=== PATIENT | female | born 1965 | race American Indian/Alaskan Native ===

== ENCOUNTER → 2017-02-04 | Outpatient (CLI) | payer OTHER | LOC: FIMAGING 12:17 | PROVIDERS: ATTEND Obstetrics & Gynecology Gynecology | DX: Z12.31 Encounter for screening mammogram for malignant neoplasm of breast (principal); Z80.3 Family history of malignant neoplasm of breast | CPT/HCPCS: G0202 ==

== ENCOUNTER → 2017-07-08 | Outpatient (CLI) | payer OTHER | LOC: FIMAGING 12:31 | PROVIDERS: ATTEND Obstetrics & Gynecology Gynecology | DX: M81.0 Age-related osteoporosis without current pathological fracture (principal); Z78.0 Asymptomatic menopausal state; Z79.890 Hormone replacement therapy ==

== ENCOUNTER → 2018-04-01 | Outpatient (CLI) | payer OTHER | LOC: FIMAGING 13:30 | PROVIDERS: ATTEND Obstetrics & Gynecology Gynecology | DX: Z12.31 Encounter for screening mammogram for malignant neoplasm of breast (principal); Z80.3 Family history of malignant neoplasm of breast ==

== ENCOUNTER → 2018-06-25 | Outpatient (CLI) | payer OTHER | LOC: BMCIMAGING 16:42 | PROVIDERS: ATTEND Family Medicine | DX: M25.531 Pain in right wrist (principal); W19.XXXA Unspecified fall, initial encounter; R93.6 Abnormal findings on diagnostic imaging of limbs ==

== ENCOUNTER 2018-06-26 17:06 | Emergency (ER) | payer OTHER ==
--- NOTE | 2018-06-26 17:19 | EDPHY ---
General Time Seen by Provider: 06/26/18 17:18 Narrative: CLINICAL IMPRESSION: Right Distal Radius Fracture ASSESSMENT/PLAN: Patient is a 52-year-old female with no significant medical history who presents with complaint of escalating and uncontrolled pain after being diagnosed with distal right radius fracture yesterday. Patient is very uncomfortable appearing however not toxic-appearing. A repeat x-ray was obtained which revealed a transverse nondisplaced distal radial fracture. Her compartment was soft on my examination, no evidence of compartment syndrome. The patient was responded in a volar splint, CMS remained intact status post splint placement. There was no evidence of dislocation, compartment syndrome, DVT, cellulitis, septic arthritis or neurovascular compromise. Her history and physical examination is most consistent with acute right distal radius fracture. The patient was given fentanyl and Percocet in the emergency department with a significant improvement of her pain. On repeat examination and prior to discharge the patient reports she is feeling so much better, feels that her pain is now adequately controlled. She is well established with Dr. Arriola from a remote right injury, she will call 1st thing Friday morning to schedule follow-up. Return precautions discussed-patient to return to the emergency Department for significantly worsening or uncontrolled pain, significant swelling, numbness or tingling of the extremity, paleness or coolness of her digits, fever or for any other concerning symptom. The patient verbalizes understanding and she is in agreement with this plan. DIFFERENTIAL DX: Differential diagnosis including but not limited to compartment syndrome, new injury, septic joint, cellulitis, fracture, dislocation ED PROCEDURES: Procedure: Splint placement. A Zoe splint was applied. After application of the splint I returned and re -examined the patient. The splint was adequately immobilizing the joint and distal to the splint the patient's circulation and sensation was intact. ED COURSE: 1735: Case discussed with Dr. Alejandro 1738: Dr. Alejandro discussing case with Dr. Hanks 1828: On repeat examination the patient is much more comfortable appearing. Splint removed by myself, compartment is soft. She remains neuro vascularly intact distally. CHIEF COMPLAINT: Right wrist pain, diagnosed with distal radius fracture yesterday HPI: Patient is a 52-year-old female with no significant medical history who presents to the emergency department after sustaining a fall yesterday, diagnosed with distal radial fracture presenting with extreme pain. Patient reports she was working out in her long, fell backwards onto outstretched hand, was seen at [facility] and diagnosed with a distal right radius fracture and possible ligamentous injury. Patient reports she was given Advil for pain relief, she had a [place] at home which she took this morning with mild relief of her pain. Patient was having significant escalating pain today, went to Dr. Arriola's office as she is already a patient of his. They took the splint off, "manipulated the arm" when she started experiencing even more significant pain. Patient proceeded here for further evaluation and treatment. She denies any numbness or tingling of her digits, she denies any coolness or pallor of her digits. She has had a "heavy feeling in her middle finger" since the injury. She denies any other injury or complaint. PAST MEDICAL HISTORY: Denies Pertinent Past Surgical History: Right pisiform removal. Family History: Noncontributory Social History: Denies smoking or illicit drug use ROS: A full 10 point review of systems was negative except for those mentioned in HPI. PHYSICAL EXAM: General Appearance: Alert, very uncomfortable appearing however not toxic- appearing. HENT: Normocephalic, atraumatic. External ears are normal. Nares are clear, mucosa is pink. Oropharynx is clear , dentition is normal. Eyes: PERRLA, EOMI intact. Conjunctiva pink, no pallor or injection. Neck: Supple, nontender, no lymphadenopathy, no midline pain, FROM, no meningismus. Respiratory: There are no retractions, lungs are clear to auscultation. Cardiac: Regular rate and rhythm, no murmurs or gallops. Gastrointestinal: Abdomen is soft, nontender, bowel sounds normal, no masses/ hernia, no rigidity, guarding or focal peritoneal findings. Skin: Warm, dry, no rashes, no nodules on palpation. Upper Extremities: Left upper extremity unremarkable. Intact distal pulses, Full range of motion intact, no tenderness, no ecchymosis or edema. Right shoulder nontender with full range of motion, right elbow nontender with full range of motion. Patient is able to supinate and pronate without difficulty. The radial, ulnar and median nerves were all tested. Radial nerve: Patient is able to extend wrist and fingers of the local joints. Ulnar nerve: Patient is able to abduct all fingers. Median nerve patient is able to oppose thumb to pinky. After splint removal, the forearm is noted to be mildly edematous, ecchymosis noted on the volar aspect. The compartment is soft. Two point discrimination is intact at each digit distally. Lower Extremities: Intact distal pulses, No edema, No tenderness, No cyanosis, full range of motion intact, No calf tenderness bilaterally. MEDICAL DECISION MAKING: Patient was seen independently. Secondary supervising physician at time of evaluation was Dr. Alejandro. Diagnosis: Right distal radius fracture. New, requires workup Summary: See Assessment and Plan for summary of ED visit Clinical lab tests: Not applicable. Independent visualization of images, tracing, or specimens: Yes. Decision to obtain medical records or history from someone other than the patient: No Review / Summarize previous medical records: Yes Discussed patient with another provider: Yes, Dr. Alejandro Patient Progress: Stable, discharged. - Diagnostics Imaging Results: Imaging Impressions Wrist X-Ray 06/26/18 17:26 Impression: Casting of transverse nondisplaced mildly comminuted distal right radial fracture. Scapholunate interspace widening. - Objective Vital Signs: Initial Vital Signs Temperature (C) 36.9 C 06/26/18 17:15 Heart Rate 55 L 06/26/18 17:15 Respiratory Rate 16 06/26/18 17:15 Blood Pressure 167/75 H 06/26/18 17:15 O2 Sat (%) 98 06/26/18 17:15 O2 Delivery Mode Room Air Allergies/Adverse Reactions: No Known Drug Allergies Allergy (Verified 06/26/18 17:20) Home Medications: Medication Instructions Recorded oxyCODONE/APAP 5/325 [Percocet 1 - 2 tab PO Q4H PRN #20 tab 06/26/18 5/325 (*)] Medications Given: Discontinued Medications Fentanyl (Sublimaze) 100 mcg IVP EDNOW ONE Stop: 06/26/18 17:42 Last Admin: 06/26/18 17:43 Dose: 100 mcg Ondansetron HCl (Zofran) 4 mg IVP EDNOW ONE Stop: 06/26/18 18:22 Last Admin: 06/26/18 18:24 Dose: 4 mg Oxycodone/Acetaminophen (Percocet 5/325) 2 tab PO EDNOW ONE Stop: 06/26/18 18:15 Last Admin: 06/26/18 18:19 Dose: 2 tab Departure - Departure Disposition: Home, Routine, Self-Care Clinical Impression: Distal radius fracture, right Qualifiers: Encounter type: initial encounter Fracture type: closed Fracture morphology: unspecified fracture morphology Qualified Code(s): S52.501A - Unspecified fracture of the lower end of right radius, initial encounter for closed fracture Condition: Good Instructions: Wrist Fracture in Adults (ED) Additional Instructions: DISCHARGE INSTRUCTIONS FROM YOUR DOCTOR Thank you for visiting our emergency department today. Please keep in mind that discharge from the emergency department does not mean that there is nothing wrong - it simply means that we have not identified an emergency condition that requires further evaluation or treatment in the hospital. You should always plan to follow up with primary care for re-evaluation of your condition in the next 2-3 days. Rest, ice (on and off), elevate the wrist and hand as possible above the level of the heart to decrease pain and swelling. Wear the splint as applied. Do not remove splint and do not get it wet. For pain, Ibuprofen 400 mg every 6 hours. Do not exceed 2400 mg of ibuprofen in 24 hours. Take percocet as prescribed if needed for pain. Do not take this medication with tylenol or other tylenol-containing medications. Do not take this medication while you are drinking alcohol, driving, working, supervising persons or operating machinery. This medication can make you sleepy. You may need to take a stool softener, such as Colace, which is available over-the- counter, while you take this narcotic pain medicine, as it may make you constipated. Continue your regular medications as prescribed. Return for increased pain or swelling, numbness, tingling or weakness of the fingers, discoloration of the fingers, fever,inability to move your fingers or any other new, worsening or worrisome symptoms. People present with illnesses and injuries in different ways, and it is always possible that we have missed something. You may always return for re-evaluation if symptoms worsen or if they are not improving or if you develop new/different symptoms. Again, thank you for choosing our emergency department. We hope that you feel better. Referrals: Trip Covarrubias MD [Primary Care Provider] - As per Instructions Conner Arriola MD [Medical Doctor] - 2-3 days, call for appt. Prescriptions: oxyCODONE/APAP 5/325 [Percocet 5/325 (*)] 1 - 2 tab PO Q4H PRN #20 tab PRN Reason: Pain, Severe
[2018-06-26] MEDS ORDERED: fentaNYL 100 MCG/2 ML INJ ONE (17:37)
[2018-06-26] MEDS ORDERED: fentaNYL 100 MCG/2 ML INJ IVP ONE (17:41)
[2018-06-26] MEDS ORDERED: OXYCODONE/APAP 5/325 TAB PO ONE (18:14)
[2018-06-26] MEDS ORDERED: ONDANSETRON 4 MG/2 ML VIAL IVP ONE (18:21)
[2018-06-26 18:59] VITALS: BP 154/83
== END 2018-06-26 18:57 | disposition home or self-care (01) ==
PROC: 2W3CX1Z Immobilization of Right Lower Arm using Splint (ICD-10-PCS; principal; 2018-06-26)
DX: S52.501A Unspecified fracture of the lower end of right radius, initial encounter for closed fracture (principal); W19.XXXA Unspecified fall, initial encounter; Y93.B9 Activity, other involving muscle strengthening exercises
CPT/HCPCS: 96374; J2405; J3010

== ENCOUNTER 2018-06-27 02:48 | Observation (INO) | payer OTHER ==
[2018-06-27] MEDS ORDERED: fentaNYL 100 MCG/2 ML INJ ONE ×2 (03:07→14:41)
[2018-06-27] MEDS ORDERED: fentaNYL 100 MCG/2 ML INJ IVP ONE (03:10)
--- NOTE | 2018-06-27 03:11 | EDPHY ---
H & P Stated Complaint: WAS SEEN EARLIER TODAY FOR FX WRIST PAIN MEDS NOT WORKING Time Seen by Provider: 06/27/18 02:53 HPI/ROS: HPI The patient presents with right wrist pain. The patient was diagnosed with a nondisplaced right distal radius fracture 2 days ago after a fall. She was seen at urgent care and she was given a splint. She had ongoing pain which was very severe so she went to [facility]. They changed her splint but she had severe pain so she came to the emergency department. Here she received fentanyl with some pain relief. She felt much better and was discharged home. She has been taking oxycodone around the clock, however pain has been severe so she comes back to the emergency department.. REVIEW OF SYSTEMS 10 systems were reviewed and negative with the exception of the elements mentioned in the history of present illness. PMHx: Prior [place] pisoform [place] [address] Arri[place], no other injuries, history of osteoporosis Soc Hx: Here with her PHYSICAL General Appearance: Alert, uncomfortable appearing Eyes: Pupils equal and round no pallor or injection ENT, Mouth: Mucous membranes moist Respiratory: Breathing comfortably Neurological: A&O, moves all extremities Skin: Warm and dry, no rashes Musculoskeletal: Right wrist is slightly edematous with ecchymoses on the radial aspect. There is tenderness of the radial aspect of her wrist with limited range of motion secondary to pain, there is brisk capillary refill in all digits, hand is warm, there is decreased sensation to the middle finger to light touch Extremities: symmetrical, full range of motion Psychiatric: Patient is oriented X 3, there is no agitation Source: Patient Exam Limitations: No limitations - Personal History LMP (Females 10-55): Post Menopausal Current Tetanus/Diphtheria Vaccine: Yes Current Tetanus Diphtheria and Acellular Pertussis (TDAP): Yes - Medical/Surgical History Hx Asthma: No Hx Chronic Respiratory Disease: No Hx Diabetes: No Hx Cardiac Disease: No Hx Renal Disease: No Hx Cirrhosis: No Hx Alcoholism: No Hx HIV/AIDS: No Hx Splenectomy or Spleen Trauma: No Other PMH: FX WRIST - Social History Smoking Status: Never smoked Constitutional: Initial Vital Signs Temperature (C) 36.6 C 06/27/18 02:49 Heart Rate 64 06/27/18 02:49 Respiratory Rate 18 06/27/18 02:49 Blood Pressure 145/79 H 06/27/18 02:49 O2 Sat (%) 97 06/27/18 02:49 O2 Delivery Mode Nasal Cannula O2 (L/minute) 2 Allergies/Adverse Reactions: No Known Drug Allergies Allergy (Verified 06/26/18 17:20) Home Medications: Medication Instructions Recorded oxyCODONE/APAP 5/325 [Percocet 1 - 2 tab PO Q4H PRN #20 tab 06/26/18 5/325 (*)] Medical Decision Making Differential Diagnosis: 52-year-old female with nondisplaced distal radius fracture sustained 2 days ago repeat presents to the emergency department for ongoing right wrist pain. She is currently splinted, has been taking oxycodone, using ice and elevation with ongoing severe pain. On exam, she does have some edema and ecchymoses, she has decreased sensation of her middle finger, otherwise she has sensation intact with decent range of motion. Her hand is warm. I do not see any sign of compartment syndrome. I do not appreciate any concern for vascular injury. Here, she was given fentanyl 100 mcg with minimal improvement in her symptoms. Given the severity of her pain despite multiple treatments, I feel she should be admitted to the hospital for pain control and possibly further diagnostic testing. Patient's primary orthopedist is Dr. Arriola. I attempted to reach him, however reached his colleague Dr. Kumar who [place] I consulted with Dr. Hanks the on-call orthopedist who recommended hand specialist given the scaphoidolunate widening. I consulted with Dr. oDminguez, the on-call hand specialist who will see the patient in consultation later today. We will keep the patient NPO and obtain MRI of her wrist and hand for further evaluation for ligamentous injury or acute carpal tunnel syndrome. I consulted with the hospitalist Dr. Shafer who will admit the patient for pain control. I updated the patient and her at the bedside. - Data Points Medications Given: Hydromorphone HCl (Dilaudid) 0.5 - 1 mg IVP Q3HRS PRN PRN Reason: Pain, Severe Unable to Take PO Stop: 07/07/18 04:36 Last Admin: 06/27/18 05:31 Dose: 1 mg Sodium Chloride (Ns) 1,000 mls @ 75 mls/hr IV CONT LASHAWN Stop: 06/27/18 18:04 Last Admin: 06/27/18 05:16 Dose: 1,000 mls Discontinued Medications Fentanyl (Sublimaze) 100 mcg IVP EDNOW ONE Stop: 06/27/18 03:11 Last Admin: 06/27/18 03:11 Dose: 100 mcg Ketamine HCl (Ketamine) 15 mg IVP EDNOW ONE Stop: 06/27/18 03:34 Last Admin: 06/27/18 04:43 Dose: Not Given Departure - Departure Disposition: [facility] Acute Condition: Fair
[2018-06-27] MEDS ORDERED: KETAMINE 200 MG/20 ML VIAL IVP ONE (03:33)
[2018-06-27] MEDS ORDERED: ONDANSETRON 4 MG/2 ML VIAL IVP PRN ×2 (04:37→15:57)
[2018-06-27] MEDS ORDERED: ACETAMINOPHEN 325 MG TAB PO PRN (04:37)
[2018-06-27] MEDS ORDERED: LORazepam 2 MG/ML INJ IVP PRN (04:37)
[2018-06-27] MEDS ORDERED: ONDANSETRON DISINTEGRATING 4 MG TAB PO PRN (04:37)
[2018-06-27] MEDS ORDERED: NS 1,000 ML IV SCH (04:45)
[2018-06-27] MEDS: HYDROmorphONE/DILAUDID 1 MG/ML INJ IVP PRN ×2 (05:31→09:46)
--- NOTE | 2018-06-27 06:15 | GHP ---
[f rep st] HISTORY AND PHYSICAL DATE OF ADMISSION: 06/27/2018 SOURCE: Patient provides history, appears reliable. EMR was reviewed and case discussed with ED pro vider. CHIEF COMPLAINT: Right wrist pain. HISTORY OF PRESENT ILLNESS: This is a very pleasant 52-year-old female with past medical history sig nificant for osteoporosis, impaired menopausal flushing on hormone replacement, who presents to the [facility] department today for the second time within 24 hours with complaints of worsening right wris t pain. Two days ago patient had a mechanical fall at home while gardening. She reports she was pul ling some weeds and leaning backwards. She believes she may have tripped over a stump and landed on her right wrist with her hand outstretched behind her. The patient denies any other injuries. She d id go to Urgent Care and was noted to have a distal radial fracture. She was placed into a splint an d referred to Orthopedic Surgery on an outpatient basis. She saw Dr. Arriola. She was complaining of pain and her splint was replaced. The patient subsequently continued to have a lot of pain. She kp t to the ER yesterday. She received a dose of fentanyl with improved pain control. She reports that she just has persistent numbness in the 3rd digit, but otherwise no numbness, tingling in the other digits. She does report worsening pain since that time. Presented again early this morning with com plaints of excruciating pain. The patient denies any fevers, chills. She does have some persistent swelling and bruising. She has not had any increased paresthesias. She received a dose of fentanyl in the emergency department with improvement in her pain. REVIEW OF SYSTEMS: 10 systems reviewed, negative except as noted above. ALLERGIES: No known drug allergies. HOME MEDICATIONS: Percocet 5/325, 1-2 tabs p.o. q.4 hours p.r.n. for pain. PAST MEDICAL HISTORY: Osteoporosis, menopausal flushing on hormone replacement therapy. PAST SURGICAL HISTORY: Patient denies. FAMILY HISTORY: Denies. SOCIAL HISTORY: Patient is , lives with her . She does not smoke, drink, or utilize a [place] illicit drugs. CODE STATUS: Full. PHYSICAL EXAMINATION: VITAL SIGNS: Upon arrival to the emergency department, blood pressure is 145/ 79, heart rate 64, respiratory rate 18, O2 saturation 97% on room air, temperature 36.6. Current vit als available, blood pressure 144/83, heart rate is 58, respiratory rate 18, O2 saturation is 95% on room air, temperature 36.4. GENERAL: No acute distress. Mara adult female is resting comfortab ly in the bed. She does appear slightly uncomfortable and fatigued. at bedside. HEAD: Nor mocephalic, atraumatic. EYES: Extraocular muscles grossly intact. Pupils equal, round, slightly de creased reactivity bilaterally, but symmetric. No scleral icterus or conjunctival injection. ENT: Mucous membranes appear moist. No oropharyngeal erythema or exudates. No nasal discharge. NECK: S upple. Trachea midline. CV: Regular rate and rhythm with occasional extra beat in the left sternal border. No murmurs, rubs, or gallops appreciated. RESPIRATORY: Unlabored breathing. Lungs are cl ear to auscultation bilaterally. No wheezes, rales, or rhonchi. ABDOMEN: Positive bowel sounds. S oft, nontender to palpation. No rebound, guarding, or masses appreciated. : No suprapubic tender ness to palpation. No Diaz catheter in place. MUSCULOSKELETAL: Patient moves all extremities with exception of the right upper extremity which is in a splint. She is able to move the distal digits. EXTREMITIES: No cyanosis, clubbing, edema. Patient with 2+ pedal pulses bilaterally and symmetric . NEURO: Grossly nonfocal. No facial drooping. Moves all extremities. PSYCH: Thought process, c ontent and questions are appropriate. Patient is pleasant and cooperative. LABORATORY STUDIES: None. IMAGING: Wrist x-ray from 06/26/2018, reviewed showing cast of transverse nondisplaced mildly commin uted distal right radial fracture, scapholunate interspace widening. ASSESSMENT AND PLAN: Mara 52-year-old female with history of osteoporosis, menopausal flushing o n hormone replacement therapy, who presents to the emergency department following mechanical fall and complaints of increasing pain with her splint. 1. Intractable right wrist pain: Differential including fracture or ligamentous injury. No evidenc e of compartment syndrome. Dr. Yao spoke with on-call hand surgeon, Dr. Dominguez. He requested an MR I this morning and to make the patient n.p.o. He will evaluate the patient once that is available. We will continue with pain management p.r.n. as patient will be n.p.o. Hydromorphone and lorazepam w ill be made available. 2. Right wrist fracture: In splint already. Additional imaging as noted above in plan. 3. Osteoporosis: Patient is on hormone replacement therapy for treatment and care. 4. Fluids, electrolytes, and nutrition: IV fluids overnight while patient will be n.p.o. Electroly te monitoring and replacement if needed. 5. Code status: Full. 6. Disposition: Patient admitted to observation status on the med-surg floor pending additional ort [facility] recommendations. /[id number]/MODL
--- NOTE | 2018-06-27 10:09 | ASMTCMCOM ---
CM Note CM Note Notes: Pt is a 52 y/o female with osteoporosis, who presented to the ED with significant pain following a right wrist fracture 2 days ago. Pt was admitted for pain control and further diagnostic testing. She will be having an MRI today. Pt has her own business and is ; her is Willem at [phone]. There are no current CM needs identified; CM will follow for changes. D/C Plan: Anticipate independent. Date Signed: 06/27/2018 10:08 AM Electronically Signed By:Carmencita Campbell
--- NOTE | 2018-06-27 12:55 | HOSPPROG ---
Hospitalist Progress Note Assessment/Plan: Arlene is a 52-year-old female who presents to the emergency department following mechanical fall and complaints of increasing pain with her splint. first encounter, chart reviewed. *Intractable pain to right wrist and hand -has a hematoma compressing the nerve -Dr Dominguez to take Arlene to OR today -recommending decompression today *right wrist fx, non displace -in splint *osteoporosis -pt on HRT for this *plan: going to OR now,> 30 minutes w f/u care and seeing patient Subjective: Arlene is sleepy, not c/o pain but had recieved ativan earlier. Objective: Vital Signs Temp Pulse Resp BP Pulse Ox 36.4 C 57 L 16 130/75 H 88 L 06/27/18 07:43 06/27/18 07:43 06/27/18 07:43 06/27/18 07:43 06/27/18 07:43 06/26/18 06/27/18 06/28/18 05:59 05:59 05:59 Intake Total 300 Output Total 350 Balance 300 -350 - Physical Exam Constitutional: no apparent distress Ears, Nose, Mouth, Throat: hearing normal Cardiovascular: regular rate and rhythym (extra beat noted) Respiratory: no respiratory distress Gastrointestinal: normoactive bowel sounds Skin: warm Neurologic: AAOx3 Psychiatric: interacting appropriately ICD10 Worksheet Patient Problems: Problems Problem Status Onset Distal radius fracture, right Acute
[2018-06-27] MEDS ORDERED: LR 1,000 ML IV SCH (13:00)
--- NOTE | 2018-06-27 13:15 | SOAPPROG ---
SOAP Progress Note Assessment/Plan: Assessment: R nondisplaced distal radius fx with SL diastasis with hematoma causing intractable pain and possible acute CTS -reviewed MRI personally and with Dr. Grace and Dr. Winn. There is a large hematoma adjacent to the fracture and extending to the carpal tunnel and distal to the midcarpal space. Plan: -recommend timely decompression. Will plan on extended CTR and hematoma decompression today. -pain ctrl -elevate RUE -ice as needed Subjective: Receiving pain medication and Ativan, but pain still comes and goes. Continues to have numbness in the LF. States that the thumb feels "funny." Objective: Vital Signs Temp Pulse Resp BP Pulse Ox 36.4 C 57 L 16 130/75 H 88 L 06/27/18 07:43 06/27/18 07:43 06/27/18 07:43 06/27/18 07:43 06/27/18 07:43 06/26/18 06/27/18 06/28/18 05:59 05:59 05:59 Intake Total 300 432 Output Total 350 Balance 300 82 R hand -intact FPL and FDP to all digits -decreased 2p in the RLF -minimal edema in digits -splint in place - Time Spent With Patient Time Spent With Patient: 20m ICD10 Worksheet Patient Problems: Problems Problem Status Onset Distal radius fracture, right Acute - ICD10 Problem Qualifiers (1) Distal radius fracture, right Qualifiers: Encounter type: initial encounter Fracture type: closed Fracture morphology: other intra-articular Qualified Code(s): S52.571A - Other intraarticular fracture of lower end of right radius, initial encounter for closed fracture
--- NOTE | 2018-06-27 13:39 | PDHPUP ---
History & Physical Update H&P update statement: This history and physical update is based on an assessment of the patient which was completed after admission or registration (within 24 hours), but prior to the surgery/procedure. H&P update: H&P reviewed & patient examined, no change in patient's condition since H&P completed
--- NOTE | 2018-06-27 14:11 | GCON ---
[f rep st] CONSULTATION DATE OF CONSULTATION: 06/27/2018 REFERRING PHYSICIAN: Vivian Shafer MD REASON FOR CONSULTATION: Right wrist pain. HISTORY OF PRESENT ILLNESS: This patient is a 52-year-old female who sustained an injury to her righ t wrist about 2 days ago when she slipped while in her garden, falling backward on her wrist, immedia te pain and inability to bear weight in the wrist after the fall. She initially presented to [facility]. X-rays were taken. A distal radius fracture was identified. She was p laced in a splint. Afterward, she had severe pain and then she was having worsening severe pain and went to the [facility]. She went there as she had prior surgery by Dr. Luis M bearden for her wrist. At [facility], the x-rays were reviewed, splint was changed, and then she was disc harged. She had continued severe pain that could not be controlled with oral pain medications and alexa suhterland then presented to the ER. She received some fentanyl, which provided pain relief and felt better a nd was discharged home. However, she returned after her pain was again uncontrolled with oxycodone. She was then admitted to the internal medicine service for pain control and I was consulted for the management of this injury. The patient notes that she has been having some numbness in the right long finger that was not presen t before. That has been progressing. This was only located in the long finger on examination with santiago sutherland this morning. She does note that her thumb is beginning to feel "funny." REVIEW OF SYSTEMS: A 10-point review of systems is negative, except as noted above. PAST MEDICAL HISTORY: None. 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 SOCIAL HISTORY: Lives with her . PHYSICAL EXAM: GENERAL: She is somewhat somnolent due to pain medication and appears uncomfortable and in pain. RIGHT UPPER EXTREMITY: A splint is in place. The splint extends up to the PIP joints, which prevents complete examination of range of motion. I am able to examine the flexion of her dig its. Her FPL and FDP to all digits is intact. Two-point discrimination is reduced in the long finge r. Her sensation is intact in the other digits. There is minimal edema in the fingers. IMAGING: X-ray of the right wrist was reviewed by . There is a nondisplaced intra-articular dista l radius fracture. There is also scapholunate widening. I requested an MRI when I was called about the patient to evaluate for the acuity of her scapholunate injury, as well as for evaluation of any h ematoma or cause of this pain. I reviewed the MRI myself, as well as with Dr. Winn. The patient h as a fairly large hematoma beginning at the fracture site extending into her carpal tunnel and then o ut in the midcarpal space extending at the level of the metacarpals. There is no edema in the scapho id or the lunate. No scapholunate ligament is identified. There is an acute nondisplaced intra-adam cular distal radius fracture seen. ASSESSMENT AND PLAN: Right distal radius fracture with hematoma causing intractable pain, as well as developing possible acute carpal tunnel syndrome. As I noted above, when I discussed the patient wi th the ED, I requested an MRI to evaluate for the cause of this pain, as the amount of pain that she is having with a nondisplaced distal radius fracture is far out of proportion to what is normally see n. I felt that a hematoma is a very possible likely cause of her discomfort. This hematoma is also likely causing compression of the median nerve, which is causing the developing numbness in the long finger. I had a prolonged discussion with her and her that there is a hematoma present and I feel that timely decompression and a carpal tunnel release is necessary to prevent further damage to the nerves, as well as to decrease her pain. We discussed the risks and benefits and she wished to proceed. We will perform extended carpal tunnel release and hematoma decompression today. /[id number]/MODL
[2018-06-27] MEDS ORDERED: ceFAZolin 2 GM/DEXTROSE 100 ML IV ONE (14:36)
[2018-06-27] MEDS ORDERED: CEFAZOLIN 2 GM/DEXTROSE/100 ML BAG IV ONE (14:38)
--- NOTE | 2018-06-27 14:38 | PDANEPAE ---
ANE History of Present Illness 52 yo for extended ctr, hematoma evacaution ANE Past Medical History - Cardiovascular History Hx Hypertension: No Hx Arrhythmias: No Hx Chest Pain: No Hx Coronary Artery / Peripheral Vascular Disease: No Hx CHF / Valvular Disease: No Hx Palpitations: No - Pulmonary History Hx COPD: No Hx Asthma/Reactive Airway Disease: No Hx Recent Upper Respiratory Infection: No Hx Oxygen in Use at Home: No Hx Sleep Apnea: No Sleep Apnea Screening Result - Last Documented: Negative - Endocrine History Hx Diabetes: No - Chronic Pain History Chronic Pain: No ANE Review of Systems Review of Systems: - Exercise capacity METS (RN): 4 METS ANE Patient History - Allergies Allergies/Adverse Reactions: No Known Drug Allergies Allergy (Verified 06/26/18 17:20) - Home Medications Home medications: home medication list seen and reviewed Home Medications: Estradiol [Vivelle-Dot 0.0375MG (*)] 0.0375 mg TD TuFr@0800 06/27/18 [Last Taken 06/23/18] Progesterone, Micronized [Progesterone] 100 mg PO HS 06/27/18 [Last Taken ] - NPO status NPO Since - Liquids (Date): 06/27/18 NPO Since - Liquids (Time): 02:00 NPO Since - Solids (Date): 06/27/18 NPO Since - Solids (Time): 02:00 - Anes Hx Anes Hx: no prior problems - Smoking Hx Smoking Status: Never smoked ANE Labs/Vital Signs - Vital Signs Blood Pressure: 130/75 Heart Rate: 57 Respiratory Rate: 16 O2 Sat (%): 88 Height: 5 ft 6 in Weight: 70.307 kg ANE Physical Exam - Airway Neck exam: FROM Mallampati Score: Class 2 - Pulmonary Pulmonary: no respiratory distress - Cardiovascular Cardiovascular: regular rate and rhythym - ASA Status ASA Status: I, E ANE Anesthesia Plan Anesthesia Plan: GA w LMA
[2018-06-27] MEDS ORDERED: PROPOFOL/EMULSION 500 MG/50 ML BOTTLE IV ONE (14:42)
[2018-06-27] MEDS ORDERED: BUPIVACAINE/EPI 0.5% 30 ML SDV ONE (15:04)
[2018-06-27] MEDS ORDERED: KETOROLAC 30 MG/1 ML SDV ONE (15:48)
[2018-06-27] MEDS ORDERED: NALOXONE HCL 0.4 MG/ML INJ IVP PRN (15:57)
[2018-06-27] MEDS ORDERED: HYDROmorphONE/DILAUDID 2 MG/ML INJ IVP PRN (15:57)
[2018-06-27] MEDS ORDERED: fentaNYL 100 MCG/2 ML INJ IVP PRN (15:57)
[2018-06-27] MEDS ORDERED: HYDROCODONE/APAP 5/325 TAB PO PRN (16:29)
--- NOTE | 2018-06-27 17:10 | POSTANESTH ---
Post Anesthetic Evaluation Cardiovascular Status: Normal, Stable Respiratory Status: Normal, Stable Level of Consciousness/Mental Status: Can Participate in Eval Pain Control: Adequate, Prn Tx Ordered Nausea/Vomiting Control: Adequate, Prn Tx Ordered Complications Possibly Related to Anesthesia: None Noted
[2018-06-27] MEDS: ASCORBIC ACID 500 MG TAB PO SCH (17:59)
[2018-06-27] MEDS ORDERED: PROGESTERONE,MICR 100 MG CAP PO SCH (21:00)
[2018-06-28] MEDS: KETOROLAC 30 MG/1 ML SDV IVP PRN ×2 (04:28→10:49)
--- NOTE | 2018-06-28 05:17 | GOP ---
[f rep st] OPERATIVE REPORT DATE OF OPERATION: 06/27/2018 SURGEON: Ross Dominguez MD ANESTHESIA: General. PREOPERATIVE DIAGNOSIS: 1. Right wrist and forearm hematoma. 2. Right impending acute carpal tunnel syndrome. 3. Right nondisplaced distal radius fracture. 4. Right scapholunate diastasis POSTOPERATIVE DIAGNOSIS: same PROCEDURE PERFORMED: 1. Right extended carpal tunnel release. 2. Right wrist and forearm hematoma evacuation. ESTIMATED BLOOD LOSS: Less than 5 cc during the procedure, about 50 cc of hematoma evacuated. INDICATIONS: The patient is a 52-year-old female who sustained an injury to her right wrist about 2 days ago when she was gardening. She said she states she fell backward, injuring her right wrist. She was initially seen at the [facility], placed in a splint. Afterward, she went to another urgent care and then to the ER twice due to unrelenting pain in that wrist. Her pain was uncontrolled with p.o. pain medications and even a dose of fentanyl. She came back to the ER and was admitted for pain control. I was consulted. I reviewed the x-rays and then asked for an MRI. Xrays showed a nondisplaced distal radius fracture and SL diastasis. I reviewed the MRI. There is no edema in the scaphoid or lunate and no sign of a ligament. To my own review I believe the SL diastasis is either old or her normal anatomy. There was a fairly large hematoma beginning at her fracture site and extending into her carpal tunnel into her hand. I believe that this was causing the extreme pain. Furthermore, she was beginning to develop numbness in her small finger that was worsening during this time. I was concerned for an impending acute carpal tunnel syndrome, and I felt that a timely evacuation of the hematoma and carpal tunnel release was indicated. We discussed risks and benefits. Risks include pain, bleeding, infection, damage to surrounding structures, need for further operations, stiffness, weakness, wound healing complications, nerve injury, need for further surgery. She understood these risks, and then she wished to proceed. DESCRIPTION OF PROCEDURE: The patient was seen in the preoperative holding area. She was given an opportunity to ask any more questions. All her questions were answered. Consent was signed. Surgical site was marked. She was transferred to operative suite. Care was taken to pad all bony prominences on the gurney. Time-out was called, including surgical and anesthesia teams, confirming the surgical site and procedure performed. The upper extremity was prepped and draped in the usual sterile fashion. Esmarch was used to exsanguinate the right upper extremity. Tourniquet was inflated to 250 mmHg. 2 g of Ancef was given prior to incision. I marked out a standard extended carpal tunnel release incision crossing the wrist crease. I used the landmarks of the radial border of the ring finger and Valdez cardinal line, carefully dissected through the skin, identified the palmar fascia, carefully dissected through the palmar fascia and visualized the transverse carpal ligament. As I carefully incised the transverse carpal ligament with a Teller blade under direct visualization, there was immediate evacuation of hematoma. This was a large amount, about 50 cc or so. I fully released the transverse carpal ligament. Then, I fully released the distal antebrachial fascia as far as I could visualize. I then began dissecting distally. There was a large amount of blood distally in the midcarpal space, and this was evacuated as well. I then carefully dissected around the nerve, and then deep to the nerve around the tenosynovium of the flexor tendons, there was also trapped hematoma and this was opened up and released as well. This was a fairly large hematoma. I then visualized into the Parona space and visualized the distal radius. There was some old dried hematoma there; however, I was able to clean all this out. I visualized the median nerve; it was slightly hourglassed, visualized it all the way from the distal forearm into the palm. I visualized it branching into the digital nerves and also visualized the right recurrent motor branch. These were all intact. I then irrigated copiously with sterile saline. The tourniquet was then let down. I ensured that all bleeding was controlled, and there was no bleeding. I then closed the incision with interrupted 4-0 nylons. A sterile dressing was applied. Then, a splint was applied. This was wrapped very loosely with a bias wrap to prevent any circumferential pressure. She was awakened from general anesthesia in stable condition and taken to the PACU in stable condition. POSTOPERATIVE CONDITION: Stable. POSTOPERATIVE PLAN: The patient will be readmitted for IV pain control and observation. I saw the patient in the PACU, and her pain was already much improved compared to preoperatively and she was regaining sensation in the long finger. Sensation was normal in the other digits. /[id number]/MODL MTDD
[2018-06-28 08:33] VITALS: BP 117/66
[2018-06-28] MEDS: ASCORBIC ACID 500 MG TAB PO SCH (09:02)
--- NOTE | 2018-06-28 13:01 | ASDISCHSUM ---
Discharge Information Plan Status:Home with No Needs Medically Cleared to Leave:06/28/2018 Discharge Date:06/28/2018 11:43 AM CM D/C Disposition:Home, Routine, Self-Care ADT D/C Disposition:Home, Routine, Self-Care Projected Discharge Date:06/28/2018 12:00 AM Transportation at D/C:Family Discharge Delay Reason: Follow-Up Date:06/28/2018 12:00 AM Discharge Slot:1 - 8:01 am - 12:00 noon Final Diagnosis:R wrist fracture with pain Placement Information Patient Contact Information Contact Name:PASHA Relationship: Address:[address] Work Phone: [facility]:[place] Alternate Phone: [facility]/Zip Code:[place] [address] Email: Financial Information Financial Class:BCOP Primary Plan Desc:ZHANNA DODGE PPO Primary Plan Number:[id number] Secondary Plan Desc: Secondary Plan Number: Assessment Information [facility] CM Progress Note CM Note CM Note Notes: Pt is a 52 y/o female with osteoporosis, who presented to the ED with significant pain following a right wrist fracture 2 days ago. Pt was admitted for pain control and further diagnostic testing. She will be having an MRI today. Pt has her own business and is ; her is Willem at [phone]. There are no current CM needs identified; CM will follow for changes. D/C Plan: Anticipate independent. Date Signed: 06/27/2018 10:08 AM Electronically Signed By:Carmencita Campbell Intervention Information
--- NOTE | 2018-06-28 13:02 | ASMTCMCOM ---
CM Note CM Note Notes: Case discussed with TERRY Tse, patient to discharge home independent with family. Date Signed: 06/28/2018 01:01 PM Electronically Signed By:Brittni Jacob
--- NOTE | 2018-06-28 22:24 | GDS ---
[f rep st] DISCHARGE SUMMARY DISCHARGE DIAGNOSES: Right distal radius fracture complicated by hematoma with impending acute carpa l tunnel syndrome. CONSULTANTS: Ross Dominguez MD, Orthopedic Surgery. PROCEDURES: Right wrist and forearm hematoma evacuation with right extended carpal tunnel release pe rformed June 27, [address] Ross Dominguez. HISTORY OF DETAILS: Please see History and Physical dated June 27, 2018. In brief, the patient is a 52-year-old female who presents to the emergency department after a fall onto her outstretched arm while she was gardening. She was seen in the ER the day before admission as well as urgent care prio r to that and was splinted; however, she had very poor pain control. In addition, she had persistent numbness in the 3rd digit. An MRI was performed, which showed a complex, mildly displaced intra-art icular fracture of the distal radius as well as a hematoma extending along the flexor tendons both pr oximal and distal to the carpal tunnel with mild mass effect on the carpal tunnel and flexor retinacu lum as well as complete tear of the scapholunate ligament with diastasis of the scapholunate interval and a full-thickness tear of the radial attachment of the triangular fibrocartilage complex and prob able partial tear of the articular disk as well as [id number] tenosynovitis of the extensor ten dons. Given these findings, Orthopedic consult was obtained, and she was admitted to the hospital fo r further management. HOSPITAL COURSE: The patient was admitted to the med/surg unit. She underwent surgical intervention as described above for hematoma evacuation and a carpal tunnel release. Her symptoms are dramatical ly improved the following day. She has had no postoperative complications, and she wishes to dischar ge home. DISPOSITION: Patient is discharged home in stable condition. FOLLOWUP: 1. She is to follow up with Dr. Dominguez's office in 1-2 weeks. She is instructed to elevate her right u pper extremity and may perform range of motion of her digits. 2. Trip Covarrubias MD, Primary Care. DISCHARGE MEDICATIONS: Please see [employer] for completed outpatient medication list. Medications on discharge include: Tylenol 650 p.o. q.4 hours p.r.n.; and [place] 5/325 at 1-2 tabs p.o. q.4 hours p. r.n. #30, no refills, as prescribed by her surgeon. /[id number]/MODL
[2018-06-30] MEDS ORDERED: ESTRADIOL VIVELLE 0.0375 MG PATCH TD SCH (08:00)
== END 2018-06-28 11:43 | disposition home or self-care (01) ==
LOC: F3N 05:03
PROVIDERS: ADMIT Family Medicine; ATTEND Hospitalist
DX: T79.2XXA Traumatic secondary and recurrent hemorrhage and seroma, initial encounter (principal); G56.11 Other lesions of median nerve, right upper limb; S60.211A Contusion of right wrist, initial encounter; S52.571A Other intraarticular fracture of lower end of right radius, initial encounter for closed fracture; S63.591A Other specified sprain of right wrist, initial encounter; S63.511A Sprain of carpal joint of right wrist, initial encounter; M65.831 Other synovitis and tenosynovitis, right forearm; W01.0XXD Fall on same level from slipping, tripping and stumbling without subsequent striking against object, subsequent encounter; Y93.H2 Activity, gardening and landscaping; Y92.017 Garden or yard in single-family (private) house as the place of occurrence of the external cause; M81.0 Age-related osteoporosis without current pathological fracture; Z79.890 Hormone replacement therapy
CPT/HCPCS: 10140; 64721; 73221; 96374; 97165; 99285; G0378; J0690; J1170; J1885; J2060; J2405; J2704; J3010

== ENCOUNTER → 2018-07-15 | Outpatient (CLI) | payer OTHER | LOC: BMCIMAGING 13:28 | PROVIDERS: ATTEND Orthopaedic Surgery Hand Surgery | DX: S52.501D Unspecified fracture of the lower end of right radius, subsequent encounter for closed fracture with routine healing (principal) ==

== ENCOUNTER → 2018-08-03 | Outpatient (CLI) | payer OTHER | LOC: BMCIMAGING 15:19 | PROVIDERS: ATTEND Orthopaedic Surgery Hand Surgery | DX: S52.501A Unspecified fracture of the lower end of right radius, initial encounter for closed fracture (principal) ==

== ENCOUNTER → 2018-08-18 | Outpatient (CLI) | payer OTHER | LOC: BMCIMAGING 14:29 | PROVIDERS: ATTEND Orthopaedic Surgery Hand Surgery | DX: S52.501D Unspecified fracture of the lower end of right radius, subsequent encounter for closed fracture with routine healing (principal) ==

== ENCOUNTER → 2018-09-16 | Outpatient (CLI) | payer OTHER | LOC: BMCIMAGING 15:00 ==